=== PATIENT | female | born 1970 | race Caucasian/White ===

== ENCOUNTER 2018-04-17 09:35 | Emergency (ER) | payer SELFPAY ==
[~2018-04-17] VITALS: Ht 160 cm; Wt 72.6 kg
[2018-04-17 09:51] VITALS: BP 142/83; Ht 160 cm; Wt 72.6 kg
== END 2018-04-17 11:40 | disposition home or self-care (01) ==
LOC: ED 09:35
DX: L02.211 Cutaneous abscess of abdominal wall (principal)